=== PATIENT | male | born 1985 | race Caucasian/White ===

== ENCOUNTER 2025-04-26 14:55 | Outpatient (CLI) | payer SELFPAY ==
--- NOTE | 2025-04-27 04:13 | RADIOLOGY REPORT ---
Procedure: CT CT CALCIUM SCORE ONLY Reason for study/Clinical History: FAMILY HX OF ISCHEM HEART DIS AND OTH DIS OF THE CIRC SYS Comparison Study: None Exam Date: 04/26/2025 03:07 PM TECHNIQUE: CT calcium score was performed per protocol. Radiation Dose Information: CT Dose: CTDI volume is 5.8 mGy. Dose-length product is 88.9 mGy*cm The dose indicators for CT are the volume Computed Tomography (CT) Dose Index (CTDIvol) and the Dose Length Product (DLP), and are measured in units of mGy and mGy-cm, respectively. These indicators are not patient dose, but values generated from the CT scanner acquisition factors. The report includes radiation exposure data for exposures received during this examination. Radiation optimization: All CT scans at this facility use at least one of these dose optimization techniques: automated exposure control mA and/or kV adjustment per patient size (includes targeted exams where dose is matched to clinical indication) or iterative reconstruction. FINDINGS: Calcium Score LM: 0 LAD: 0 CX: 0 RCA: 0 PDA: 14, 20mm, 4.01 mg No additional findings. IMPRESSION: 1. Calcium score 14, PDA 2. Total calcium score of 14 is between the 75 and 90 percentile for males between the ages of 40 and 44 3. Risk of coronary artery disease: Mild or minimal coronary narrowings likely 4. Implication: Definite, at least mild atherosclerotic plaque HS:Y
== END 2025-04-26 23:59 | disposition home or self-care (01) ==
LOC: RAD 14:55
PROVIDERS: ATTEND Nurse Practitioner Family
DX: Z13.6 Encounter for screening for cardiovascular disorders (principal); I25.10 Atherosclerotic heart disease of native coronary artery without angina pectoris; Z82.49 Family history of ischemic heart disease and other diseases of the circulatory system
CPT/HCPCS: 71250; 75571